=== PATIENT | female | born 1995 | race Caucasian/White ===

== ENCOUNTER 2023-07-01 11:06 | Day surgery (SDC) | payer OTHER, SELFPAY ==
[2023-07-01] VITALS (13 sets, daily range): BP systolic 97–111; BP diastolic 49–69; PULSE 78–102; RESP 14–18; TEMP 36.6–37.1; O2SAT 99–100; BMI 20.7
--- NOTE | 2023-07-01 11:32 | ED.GENADULT ---
HPI - General Adult General Time Seen by Provider: 11:32 Date Seen: 07/01/23 Chief complaint: Skin/Abscess/Foreign Body Stated complaint: abscess on buttocks, needs CT Time Seen by Provider: 07/01/23 11:13 History of Present Illness HPI narrative: 27-year-old female who is generally healthy, on no chronic medications, no allergies, presents to the ER today from urgent care for evaluation of a painful swollen erythematous lesion (probably an abscess) under left buttock, adjacent to her rectum. Per patient she began to have a sore area there a few days ago, perhaps Monday or Monday this week. She will was on a trip to [place] with her sister so was seen at a [facility] in [place] and put on cephalexin for a possible cellulitis. She has been taking that antibiotic but she has had progressively worsening pain, increasing swelling, and spreading redness on her left buttock. She does not have any constitutional symptoms such as fever, chills, body aches. No abdominal pain. No nausea or vomiting. She does have a family history of Crohn's disease in her father, but does not have any known personal history of inflammatory bowel disease. She is not diabetic or immunosuppressed. She does not think she is . Related Data Home Medications Medication Instructions Recorded Confirmed cephalexin 500 mg capsule 500 mg PO QID 07/01/23 07/01/23 Allergies Allergy/AdvReac Type Severity Reaction Status Date / Time No Known Drug Allergies Allergy Verified 07/01/23 09:42 Review of Systems Narrative: Negative Exam Narrative: Exam Narrative: Constitutional: Appears well-developed and well-nourished. Alert. Conversant. Non toxic. Uncomfortable and prefers to lay in the prone position because there was too much pain when lying supine. HENT: Head: Atraumatic. Nose: Nose normal. Mouth/Throat: Oral mucosa is clear and moist. no trismus. Mallampati class 1. She does have mildly enlarged tonsils bilaterally but they are not erythematous, suspect this is her baseline. Eyes: Conjunctivae normal. EOM normal. Pupils equal, round, and reactive to light. No scleral icterus. Neck: Normal range of motion. Full extension and flexion. Neck supple. No tracheal deviation present. Cardiovascular: Normal rate, regular rhythm. No gallop. No friction rub. No murmur heard. Symmetric radial artery pulses Pulmonary/Chest: Effort normal. No stridor. No respiratory distress. No wheezes. No rales. No rhonchi . No tenderness. Abdominal: Soft. Bowel sounds normal. No distension. No mass. No tenderness. No rebound. No guarding. Rectal: Performed with female vinyl dipper. There is significant erythema, induration, and tenderness of the soft tissue of the gluteal cleft and left buttock. Rough size of the erythema is 10-12 cm x 6-8 cm. It does appear to be anatomically fairly close to left posterior border of the rectum. There appears to be a central area of whitish skin that may be the beginning of a pointing abscess. This is approximately 3 or 4 cm distant from the anus. Digital Rectal exam not performed due to discomfort. Musculoskeletal: RUE: Normal range of motion. No tenderness. No deformity LUE: Normal range of motion. No tenderness. No deformity RLE: Normal range of motion. No edema. No tenderness. No deformity LLE: Normal range of motion. No edema. No tenderness. No deformity Neurological: Alert and oriented to person, place, and time. Normal strength. CN II-VII intact. No sensory deficit. GCS eye subscore is 4. GCS verbal subscore is 5. GCS motor subscore is 6. Normal coordination Skin: Skin is warm and dry. No rash noted. No pallor. Normal capillary refill. Psychiatric: Normal mood. Normal affect. Const: Vital Signs, click to edit/add: Vital Signs - 24 hr 07/01/23 11:15 Temperature 97.8 F Pulse Rate [Pulse Oximeter] 102 H Respiratory Rate 14 Blood Pressure [Ri ght Upper Arm] 97/56 L Pulse Oximetry 99 Oxygen Delivery Me thod Room Air Course Course Hospital Course: Recheck-resting in bed. He just received Dilaudid. Awaiting labs prior to CT. Vital Signs Vital signs: Initial Vital Signs Temperature 97.8 F 07/01/23 11:15 Temperature Source Temporal Artery Scan 07/01/23 11:15 Pulse Rate 102 H 07/01/23 11:15 Pulse Rhythm Regular 07/01/23 11:15 Respiratory Rate 14 07/01/23 11:15 Blood Pressure 97/56 L 07/01/23 11:15 Blood Pressure Mean 69 L 07/01/23 11:15 Blood Pressure Position Sitting 07/01/23 11:15 Pulse Oximetry 99 07/01/23 11:15 Oxygen Delivery Method Room Air 07/01/23 11:15 Vital Signs Temperature 97.8 F 07/01/23 11:15 Pulse Rate 102 H 07/01/23 11:15 Respiratory Rate 14 07/01/23 11:15 Blood Pressure 97/56 L 07/01/23 11:15 Pulse Oximetry 99 07/01/23 11:15 Oxygen Delivery Method Room Air 07/01/23 11:15 Temperature 97.8 F 07/01/23 11:15 Pulse Rate 102 H 07/01/23 11:15 Respiratory Rate 14 07/01/23 11:15 Blood Pressure 97/56 L 07/01/23 11:15 Pulse Oximetry 99 07/01/23 11:15 Oxygen Delivery Method Room Air 07/01/23 11:15 Medical Decision Making MDM Narrative Medical decision making narrative: Pleasant generally healthy 27-year-old female presenting to the ER today from urgent care for evaluation of a left buttock/gluteal cleft abscess. Differential would include pilonidal abscess, perirectal abscess, versus deeper tracking. She is afebrile, hemodynamically stable, clinically nontoxic, but does have leukocytosis with a white count of 14.8. Although she has an abscess/associated infection, there is no signs of sepsis. Started on intravenous antibiotic 1st dose given here in the ER. CT scan abdomen pelvis was obtained to evaluate the location, size and extent of the abscess, it does show an abscess with potential presence of a fistula. I discussed the patient with surgery, Dr. Duff. She will take the patient to the OR for drainage. The patient's heart and lung exam is normal. She has no history of cardiovascular disease. She is a nonsmoker. I think she would be ASA category 1. Mallampati score is 1. She last ate solid foods yesterday evening. She did have some liquids this morning, about 4 hours prior to presentation to the ER. She will board here in the ER until she can go to the operating room later this afternoon. Lab Data Labs: Lab Results 07/01/23 Range/Units 11:47 WBC 14.84 H (4.50-11.00) K/uL RBC 4.22 (4.00-5.20) m/uL Hgb 10.0 L (12.0-16.0) gm/dL Hct 32.2 L (33.0-51.0) % MCV 76 L (80-100) fL MCH 24 L (26-34) pg MCHC 31 L (32-36) gm/dL RDW Coeff of Thomas 15.6 H (11.5-15.5) % Plt Count 289 (140-440) K/uL Neut % (Auto) 82.9 H (42.0-72.0) % Lymph % (Auto) 7.7 L (20-44) % [place] % (Auto) 7.7 (0.0-11.0) % Eos % (Auto) 1.1 (0.0-7.0) % Baso % (Auto) 0.3 (0.0-3.0) % Neut # (Auto) 12.30 H (1.7-7.0) K/uL Lymph # (Auto) 1.10 (0.90-2.90) K/uL [place] # (Auto) 1.10 H (0.00-0.90) K/UL Eos # (Auto) 0.20 (0.00-0.50) K/uL Baso # (Auto) 0.00 (0.00-0.30) K/uL Abs Immat Gran (auto) 0.00 (0.00-0.30) K/uL Imm/Tot Granulo (auto) 0.3 % Sodium 137 (135-149) mmol/L Potassium 3.8 (3.6-5.1) mmol/L Chloride 99 (96-114) mmol/L Carbon Dioxide 31 (20-32) mmol/L BUN 17 (5-24) mg/dL Creatinine 0.7 (0.5-1.5) mg/dL Estimated Creat Clear 100.75 Estimated GFR 122 ml/min Glucose 106 (60-115) mg/dL Calcium 9.3 (8.4-10.6) mg/dL HCG, Qual Negative (Negative) Imaging Data CT scan - abdomen: Attestation: I have reviewed the pertinent imaging results. My impression: Abscess in left buttock, probably pilonidal rather than perianal Radiologist's impression: IMPRESSION: Fluid collection with adjacent inflammatory changes measuring 4.4 x 2.9 cm in the left medial gluteal subcutaneous fat, consistent with an abscess. There is a possible perianal fistulous tract. Consider further evaluation with MRI. Discharge Plan Discharge Prescriptions: No Action cephalexin 500 mg capsule 500 mg PO QID
--- NOTE | 2023-07-01 11:36 | CRLHL7_ITS ---
For Patients: As a result of the Century Cures Act, medical imaging exams and procedure reports are released immediately into your electronic medical record. You may view this report before your referring provider. If you have questions, please contact your health care provider. INDICATION: Perirectal versus pilonidal abscess. TECHNIQUE: CT abdomen and pelvis acquired with 57 mL Isovue 370 contrast. COMPARISON: None. FINDINGS: Lower chest: No focal consolidation. Liver: No suspicious focal hepatic lesion. Gallbladder and bile ducts: Unremarkable. Pancreas: Unremarkable. Spleen: Unremarkable Adrenal glands: Unremarkable. Kidneys: Kidneys enhance symmetrically, without hydronephrosis. Retroperitoneum: No lymphadenopathy. Bowel and mesentery: Bowel is nonobstructed. Colon is largely decompressed. No pneumoperitoneum. Bladder: Unremarkable for degree of distension. Reproductive organs: Unremarkable. Small volume pelvic free fluid, likely physiologic. Pelvic lymph nodes: No lymphadenopathy. Vessels: Unremarkable. Abdominal wall: No acute abdominal wall abnormality. There is a fluid collection with adjacent inflammatory changes measuring 4.4 x 2.9 cm in the left medial gluteal subcutaneous fat (series 2, image 127), consistent with an abscess. There is a possible perianal fistulous tract. Bones: No suspicious/aggressive focal osseous lesion. Mild scoliosis. IMPRESSION: Fluid collection with adjacent inflammatory changes measuring 4.4 x 2.9 cm in the left medial gluteal subcutaneous fat, consistent with an abscess. There is a possible perianal fistulous tract. Consider further evaluation with MRI. Please note that all CT scans at this facility use dose modulation, iterative reconstruction, and/or weight-based dosing when appropriate to reduce radiation dose to as low as reasonably achievable. Dictated by Parmjit Barnhart MD @ 07/01/2023 1:20:58 PM (Electronically Signed)
[2023-07-01 11:54] LABS: Basophils Percent Auto 0.3 % (0.0-3.0); Eosinophils Percent Auto 1.1 % (0.0-7.0); Hematocrit 32.2 % (33.0-51.0); Immature Granulocytes Pct Auto 0.3 %; Lymphocytes Percent Auto 7.7 % (20-44); Mean Corpuscular HGB Conc 31 gm/dL (32-36); Mean Corpuscular Hemoglobin 24 pg (26-34); Mean Corpuscular Volume 76 fL (80-100); Monocytes Percent Auto 7.7 % (0.0-11.0); Neutrophils Percent Auto 82.9 % (42.0-72.0); Platelet Count* 289 K/uL (140-440); RDW Coefficient of Variation % 15.6 % (11.5-15.5); Red Blood Count 4.22 m/uL (4.00-5.20); White Blood Count* 14.84 K/uL (4.50-11.00)
[2023-07-01] MEDS: HYDROmorphone 0.5 mg/0.5 ml inj IVP (11:54)
[2023-07-01] MEDS: ONDANSETRON 2 MG/ML inj 4 MG IVP (11:55)
[2023-07-01] MEDS: PIPERACILLIN/TAZOBACTAM 4.5 GM in 0.9 % SODIUM CHLORIDE Mini-bag 100 ML IVPB (11:55)
[2023-07-01 11:56] LABS: Slide Review Reflex No
[2023-07-01 12:10] LABS: Chloride* 99 mmol/L (96-114); Potassium* 3.8 mmol/L (3.6-5.1); Sodium* 137 mmol/L (135-149)
[2023-07-01 12:13] LABS: Blood Urea Nitrogen* 17 mg/dL (5-24); Carbon Dioxide* 31 mmol/L (20-32); Creatinine* 0.7 mg/dL (0.5-1.5); Est. Creatinine Clearance* 100.75; Estimated Glomerular Filt Rate 122 ml/min; Glucose* 106 mg/dL (60-115); HCG Qualitative Serum* Negative (Negative)
[2023-07-01 12:14] LABS: Calcium* 9.3 mg/dL (8.4-10.6)
--- NOTE | 2023-07-01 16:31 | P.GSHP_ITS ---
History of Present Illness History of Present Illness Date Seen: 07/01/23 Chief complaint: abscess on buttocks, needs CT Narrative: Brandie Petty is a 27 year old female who presented to the emergency department with increasing redness and pain of the left buttock. She has never had any thing like this before. She states that it started as a small area few days ago but has been increasing in size. She was seen at urgent care and started on cephalexin for possible cellulitis, with no improvement. She denies any current drainage. She has been having regular bowel movements. She is otherwise healthy. Review of Systems Status of ROS: Reports: 10 or more systems reviewed and unremarkable except as noted in History and below Meds Home Medications and Allergies Allergies Allergy/AdvReac Type Severity Reaction Status Date / Time No Known Drug Allergies Allergy Verified 07/01/23 09:42 Exam Narrative: Exam Narrative: General: Alert and oriented, no acute distress. Nontoxic in appearance Respiratory: Equal breath rise bilaterally, maintained on room air CV: Regular rhythm rate, well perfused : Left superior buttock with area of erythema and induration, underlying purulence appreciated. Very tender to palpation. No active drainage. Const: Vital Signs, click to edit/add: Vital Signs - 24 hr 07/01/23 11:15 Temperature 97.8 F Pulse Rate [Pulse Oximeter] 102 H Respiratory Rate 14 Blood Pressure [Ri ght Upper Arm] 97/56 L Pulse Oximetry 99 Oxygen Delivery Me thod Room Air Results Results Labs: Leukocytosis (WBC 14.8), BMP within normal limits Abdomen CT scan report/results: report reviewed and image reviewed Assessment and Plan Assessment and plan (1) Perianal abscess: Status: Acute Plan Patient is an otherwise healthy 27-year-old female with clinical workup and findings consistent with a perianal abscess. My recommendation given the size of the abscess and location is for an exam under anesthesia with incision and drainage. Risks and benefits of the procedure were discussed at length the patient. Risks included, but were not limited to: Bleeding, infection, risk of damage to surrounding structures, possible need for additional procedures and risk of urinary retention. I did discuss with the patient that I will plan to pack the wound postoperatively. She is okay to go home following the procedure with instructions to remove the packing tomorrow in the bath tub. For care at home she should expect continued drainage over the next several days. Recommend that she soak in the Sitz bath 3 times daily for comfort. Will plan to follow up with her in clinic next week to ensure adequate healing.
[2023-07-01] MEDS: LACTATED RINGERS 1000 ML 1,000 ML 100 ML IV (17:15)
[2023-07-01] MEDS: BUPIVACAINE 0.25% 30 ML INJECTION (17:58)
[2023-07-01] MEDS: LIDOCAINE 1 % PF 30 ML INJECTION (17:58)
--- NOTE | 2023-07-01 18:09 | PM.GSPRC ---
Operative Note Pre-op diagnosis: Pilonidal abscess Post-op diagnosis: Same Type of Procedure: Incision and drainage pilonidal abscess Indications: Patient is a 27-year-old female who presented to the emergency department with clinical workup and exam consistent with pilonidal abscess. Risks and benefits of incision and drainage in the operating room were discussed at length with the patient. Risks included, but were not limited to: Bleeding, infection, risk of damage to surrounding structures and possible need for additional procedures. All questions and concerns were addressed with patient agreeing to proceed. Procedure Description: After discussing the risks and benefits of the procedure, the patient signed informed consent.? The operative site was marked and the patient was brought to the operating room and placed on the operating table in supine position.? Care was taken to pad the patient's pressure points.?? The patient was then given sedation by anesthesia.?? The patient was then transferred to the Operating Room table, placed in the prone jackknife position with appropriate bumps and padding. Care was taken to ensure the genitalia and breasts were properly positioned on the hip and chest rolls, respectively. The shoulders and arms were positioned with care to protect the brachial plexus. The buttocks were taped laterally. A sterile prep and drape was done in the usual fashion. A formal timeout for patient safety was performed in accordance with hospital protocol, thereby correctly matching this patient with their diagnosis and intended procedure. External examination, digital rectal examination, and anoscopic examination were all done and revealed evidence of a pilonidal pit of the superior gluteal cleft and large fluctuant mass of the left buttock. A cruciate incision was made over the left buttock with a significant amount of foul-smelling, purulent drainage. This drainage did connect with the pilonidal pit. A finger was used to bluntly take down any connecting tissue and to ensure adequate drainage. The abscess cavity was irrigated with a mixture of saline and hydrogen peroxide. No evidence on my examination of a perianal fistula. The abscess cavity measured 7 cm x 5 cm x 5 cm in size. A 5 mm punch biopsy was used to remove the superior pilonidal pit. A curette removed any granulation tissue and hair within the sinus tract. This site was closed by single interrupted 4-0 chromic. The incision of the left buttock with left open to allow for continued drainage. Hemostasis was excellent at the end of the case. The abscess cavity was packed with 2 in Kerlix gauze and an outer dressing was applied. The patient tolerated procedure well. There were no apparent complications. Instrument, sponge, and needle counts were correct at the end of the case. Findings: Large pilonidal abscess, single superior gluteal cleft pit. Anesthesia: MAC and spinal Surgeon: Mona Duff MD Estimated blood loss (mL): 5 Additional Specimen Information: Culture of pilonidal abscess. Condition: stable Disposition: PACU Date of procedure: 07/01/23
--- NOTE | 2023-07-01 18:22 | W.ANESCHARGE ---
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
--- NOTE | 2023-07-01 19:21 | PC.NURSE ---
Nursing Care Hours: [id number] Pt arrived from PACU alert and oriented. No nausea or pain. VSS on room air. Spinal still effective, pt LE numb. C/o low back pain, reports feeling like its burning and really uncomfortable. No redness, swelling, or drainage noted. Reported from PACU nurse that there was a struggle to access the spinal anesthesia. Eating a popcicle in room.
--- NOTE | 2023-07-01 20:39 | PC.NURSE ---
pleasant and cooperative. VSS. small amount blood noted on pad. discharge packet reviewed, all questions answered. IV removed, cath intact. accompanied by brother at d/c. med [facility] to [facility]
--- NOTE | 2023-07-01 21:15 | PC.NURSE ---
pt left her Keflex prescription for pharmacy to dispose of as she is no longer to take this abx. flex o writer operator placed prescription bottle in pharmacy bin with note.
--- NOTE | 2023-07-02 10:18 | PC.NURSE ---
Called [facility] pharmacy in [place] this am to cancel her oxycodone prescription as her pharmacy was closed last night she was unable to pick that up when discharged.
== END 2023-07-01 20:31 | disposition home or self-care (01) ==
LOC: ED 14:17 → SS 18:21 → MEDSURG 18:21
PROVIDERS: Emergency Provider Emergency Medicine; Visit Provider Surgery
PROC: (CPT 10081; principal; 2023-07-01 17:00)
DX: L05.01 Pilonidal cyst with abscess (principal)
CPT/HCPCS: 10081; 36415; 400; 74177; 80048; 84703; 85025; 87070; 87075; 87076; 87077; 87181; 87186; 87205; 99140; 99284; J0665; J1100; J1170; J1885; J2001; J2250; J2405; J2543; J2704; J3010; J7120; Q9967